=== PATIENT | female | born 1980 | race African-American/Black ===

== ENCOUNTER 2021-04-16 16:15 | Observation (INO) ==
[2021-04-16 18:48] LABS: Basophils % 0.3 % (0.0-0.8); Eosinophils # 0.1 10*3/uL (0.0-0.87); Eosinophils % 1.5 % (0.00-10.9); Hematocrit 42.7 VOL% (35.7-47.0); Hemoglobin 13.7 GM/DL (12.0-16.0); Immature Granulocytes % 0.3 %; Immature Granulocytes Absolute 0.03 #; Lymphocytes # 4.1 10*3/uL (1.4-4.0); Lymphocytes % 45.5 % (21.3-54.2); Mean Corpuscular HGB Conc 32.1 GM/DL (32-36); Mean Platelet Volume 10.4 FL (9.6-12.0); Monocytes % 7.6 % (1.7-12.7); Neutrophils % 44.8 % (38.7-73.9); Platelet Count 295 T/CUMM (130-400); Red Blood Count 4.64 MC/CUMM (3.8-5.5); Red Cell Distribution Width 13.5 % (9.3-17.3); White Blood Count 9.1 T/CUMM (4-12)
[2021-04-16 18:53] LABS: Bacteria,Urine Occasional /HPF (Few); Bilirubin,Urine Negative (Negative); Blood, Urine Small mg/dL (Negative); Glucose,Urine (UA) Negative (Negative); Ketones,Urine Negative (Negative); Mucus,Urine Few /LPF (Occasional); Nitrite,Urine Negative (Negative); Protein,Urine 30 MG/DL; RBC,Urine 5 /HPF (0-4); Squamous Epithelial Cell,Urine Many /HPF (0-10); Urine Appearance CLOUDY (Clear); Urine Color Yellow (Yellow); Urine Specific Gravity 1.032 (1.001-1.035)
[2021-04-16 19:02] LABS: Alanine Aminotransferase 23 U/L (13-56); Albumin 3.3 G/DL (3.4-5.0); Alkaline Phosphatase 54 U/L (45-117); Aspartate Amino Transferase 12 U/L (0-37); Bilirubin,Total < 0.39 MG/DL (0.20-1.00); Blood Urea Nitrogen 10 MG/DL (7-18); Calcium 9.3 MG/DL (8.5-10.1); Carbon Dioxide 31 MMOL/L (21-32); Estimated Glom Filtration Rate 181 ML/MIN; Glucose 100 MG/DL (74-106); Osmolality,Calculated 275.5 MOS/KG (273-304); Potassium 3.6 MMOL/L (3.5-5.1); Sodium 139 MMOL/L (136-145); Total Protein 7.4 G/DL (6.4-8.2)
[2021-04-16] MEDS ORDERED: ONDANSETRON 4 MG/2 ML VIAL IV STA (19:34)
[2021-04-16] MEDS ORDERED: SODIUM CHLORIDE 0.9% 1,000 ML IV STA (19:34)
[2021-04-16] MEDS ORDERED: MORPHINE 2 MG/1 ML SYRINGE IV STA ×2 (19:34→20:16)
[2021-04-16] MEDS ORDERED: ACETAMINOPHEN 325 MG TABLET PO PRN (20:21)
[2021-04-16] MEDS: LACTATED RINGERS 1,000 ML IV SCH (21:21)
[2021-04-16] MEDS: PIPERACILLIN/TAZOBACTAM 3,375 MG in SODIUM CHLORIDE 0.9% 100 ML IV SCH (21:35)
[2021-04-16] MEDS ORDERED: ALBUTEROL/IPRATROPIUM 3 ML NEB RESP TX ONE (23:01)
[2021-04-16] MEDS ORDERED: BUDESONIDE 0.5 MG/2 ML NEB RESP TX ONE (23:02)
[2021-04-16] MEDS: PANTOPRAZOLE 40 MG TABLET PO SCH (23:50)
[2021-04-17] MEDS: PIPERACILLIN/TAZOBACTAM 3,375 MG in SODIUM CHLORIDE 0.9% 100 ML IV SCH ×3 (04:45→20:46)
[2021-04-17] MEDS: PANTOPRAZOLE 40 MG TABLET PO SCH (08:07)
[2021-04-17] MEDS: LACTATED RINGERS 1,000 ML IV SCH (10:30)
[2021-04-17] MEDS: ONDANSETRON 4 MG/2 ML VIAL IV PRN ×2 (11:38→16:29)
[2021-04-17] MEDS: MORPHINE 2 MG/1 ML SYRINGE IV PRN ×2 (11:40→16:29)
[2021-04-18] MEDS: LACTATED RINGERS 1,000 ML IV SCH (04:52)
[2021-04-18] MEDS: PIPERACILLIN/TAZOBACTAM 3,375 MG in SODIUM CHLORIDE 0.9% 100 ML IV SCH (04:52)
[2021-04-18] MEDS ORDERED: INDOCYANINE GREEN 25 MG VIAL IV ONE (06:00)
[2021-04-18] MEDS: MORPHINE 2 MG/1 ML SYRINGE IV PRN (06:39)
[2021-04-18] MEDS ORDERED: ROCURONIUM 50 MG/5 ML VIAL IV ONE (07:39)
[2021-04-18] MEDS ORDERED: SEVOFLURANE 1 UNIT/15 MINUTE INH ONE ×3 (07:39→09:33)
[2021-04-18] MEDS ORDERED: SUCCINYLCHOLINE 200 MG/10 ML VIAL ONE (07:39)
[2021-04-18] MEDS ORDERED: MIDAZOLAM 2 MG/2 ML VIAL ONE (07:39)
[2021-04-18] MEDS ORDERED: DEXAMETHASONE 4 MG/1 ML VIAL ONE (07:39)
[2021-04-18] MEDS ORDERED: LIDOCAINE 1%/EPI INJ 20 ML VIAL ONE (07:39)
[2021-04-18] MEDS ORDERED: fentaNYL 100 MCG/2 ML VIAL ONE (07:39)
[2021-04-18] MEDS ORDERED: propofoL 200 MG/20 ML VIAL IV ONE (07:39)
[2021-04-18] MEDS ORDERED: LIDOCAINE 2% 5 ML VIAL ONE (07:39)
[2021-04-18] MEDS ORDERED: ONDANSETRON 4 MG/2 ML VIAL ONE (07:39)
[2021-04-18] MEDS ORDERED: BUPIVACAINE MPF 0.25% 30 ML VIAL ONE (07:39)
[2021-04-18] MEDS ORDERED: SUGAMMADEX 200 MG/2 ML VIAL IV ONE (08:46)
[2021-04-18] MEDS ORDERED: TISSUE ADHESIVE 1 EACH APPLICATOR TOP ONE (08:58)
[2021-04-18] MEDS ORDERED: HYDROmorphone 2 MG/1 ML VIAL ONE (09:48)
[2021-04-18] MEDS: PANTOPRAZOLE 40 MG TABLET PO SCH ×3 (09:49→10:28)
[2021-04-18] MEDS ORDERED: ONDANSETRON 4 MG/2 ML VIAL IV PRN (09:52)
[2021-04-18] MEDS ORDERED: HYDROmorphone 2 MG/1 ML VIAL IV PRN (09:52)
[2021-04-18 12:07] VITALS: BP 129/81
== END 2021-04-18 12:28 | disposition home or self-care (01) ==
LOC: N.ED 16:15 → N.EDINP 16:15 → N.3E 22:58
PROVIDERS: ADMIT Surgery; ATTEND Surgery